=== PATIENT | female | born 1990 ===

== ENCOUNTER 2017-02-08 13:49 | Outpatient (CLI) | payer SELFPAY | END 2017-02-08 13:50 | disposition EMS.NT | LOC: EMS 13:49 | PROVIDERS: ATTEND Surgery | DX: S46.802A Unspecified injury of other muscles, fascia and tendons at shoulder and upper arm level, left arm, initial encounter (principal); V43.53XA Car driver injured in collision with pick-up truck in traffic accident, initial encounter; Y92.413 State road as the place of occurrence of the external cause ==